=== PATIENT | male | born 1960 | race Caucasian/White ===

== ENCOUNTER 2019-10-25 19:55 | Emergency (ER) | payer SELFPAY ==
[2019-10-25] VITALS (12 sets, daily range): BP systolic 151–184; BP diastolic 88–116; PULSE 67–83; RESP 13–21; TEMP 36.4; O2SAT 92–95; BMI 33.7
--- NOTE | 2019-10-25 19:59 | ECG_ITS ---
Measurements Intervals [place] Rate: 72 P: 52 FL: 171 QRS: 9 QRSD: 111 T: 7 QT: 409 QTc: 449 SINUS RHYTHM POSSIBLE LEFT ATRIAL ENLARGEMENT [-0.1mV P WAVE IN V1/V2] SEPTAL MYOCARDIAL INFARCTION , OF INDETERMINATE AGE [40+ ms Q WAVE IN V1/V2] No previous ECG available for comparison Electronically Signed On 10-26-2019 10:51:04 ART EDUCATOR by Margarita Baeza M.D. [email or web address]
--- NOTE | 2019-10-25 19:59 | XR_ITS ---
WS: [id number] Portable AP upright chest, 10/25/2019 Clinical Data: cp Comparison: None. Findings: No nodules, masses or effusions are seen. The heart is normal. The pulmonary vascularity is not increased. No pneumonia or pneumothorax is seen. XR/XR chest 1V portable [id number] Impression: Negative chest.
--- NOTE | 2019-10-25 20:03 | ED_ITS ---
Entered by Ne Judd, acting as scribe for Opal Ramsey MD HPI - Chest Pain General: Chief Complaint: Chest Pain Stated Complaint: CHEST PAINS Time Seen by Provider: 10/25/19 20:00 Source: patient, family and EMS Mode of arrival: ambulatory Limitations: no limitations History of Present Illness: HPI narrative: 59 y/o male presents to the ED with chest pain. Pt states this started after dinner. Pt states he ate pizza and glez. He reports dizziness, sweating and epigastric pain. Upon arrival at [facility], pt states he has pain that radiates between his shoulder blades. He had minimal relief from 2 Tums. complaint: chest pain Onset (ago): hour(s) Timing of current episode: episodic Prior episodes: No Onset: after eating Pain location: epigastric Severity: moderate Quality: tightness, aching and heaviness Relieving factors: nothing Associated symptoms: Reports dyspnea; Deny fever(s), nausea or vomiting Review of Systems Const: Denies: fever or chills Eyes: Denies: change in vision ENMT: Denies: mouth pain Card: Reports: chest pain Resp: Reports: shortness of breath GI: Denies: nausea, vomiting or diarrhea Musc: Denies: joint pain Skin/Breast: Denies: rash Neuro: Reports: dizziness; Denies: headache or behavioral changes Psych: Denies: depression Endo: Denies: excessive urination Ender/Lymph: Denies: easy bruising All/Imm: Denies: hives PFSH ED PFSH: Statuses (acute, chronic, etc) shown below reflect problem list status as previously entered and may not be historically accurate Social History Smoking and tobacco status: never smoked Physical Exam Const: COMMON NORMALS: no apparent distress, oriented x3 and healthy appearing HENMT: COMMON NORMALS: normocephalic and external nose normal HEAD & SCALP: normocephalic NOSE: external nose normal Eye: COMMON NORMALS: PERRL PUPIL: Yes PERRL Neck/C-Spine: COMMON NORMALS: full ROM and no lymphadenopathy Chest: COMMONS NORMALS: inspection of chest normal Resp: COMMON NORMALS: normal respiratory effort, no use of accessory muscles and clear to auscultation bilaterally AUSCULTATION: clear to auscultation bilaterally Cardio: COMMON NORMALS: regular rate and regular rhythm RATE: regular rate RHYTHM: regular rhythm GI: COMMON NORMALS: normal to inspection, nondistended, normoactive bowel sounds, soft to palpation, non-tender and no masses PALPATION: Yes soft Back/Pelvis: THORACIC SPINE/UPPER BACK: Yes normal to inspection Extremity: COMMON NORMALS: normal to inspection, full ROM and normal capillary refill Neuro: COMMON NORMALS: oriented x3 Psych: COMMON NORMALS: mental status grossly normal and cooperative Skin: COMMON NORMALS: no rashes or lesions noted GENERAL SKIN EXAM: no bassem hes or lesions noted Course Vital Signs: Vital signs: Vital Signs Temperature 97.6 F 10/25/19 22:13 Pulse Rate 75 10/25/19 22:28 Respiratory Rate 15 10/25/19 22:28 Blood Pressure 170/92 10/25/19 22:28 Pulse Oximetry 92 10/25/19 22:28 MDM - Chest Pain MDM Narrative: Medical decision making narrative: Patient presents here with chest pain is atypical in nature. It is likely indigestion from his history. Patient initial and repeat troponin are negative. Patient's x-ray and EKGs and troponin are all normal. He has had no pain here. We will start him on Prilosec and he is stable for discharge. Patient is to return if worsening. Lab Data: Labs: Lab Results 10/25/19 10/25/19 10/25/19 Range/Units 20:11 20:11 20:11 WBC 7.4 (4.0-10.0) 10^3/ uL RBC 4.39 (4.1-5.3) 10^6/u L Hgb 13.5 (11.7-16.6) g/dL Hct 39.4 L (42.0-52.0) % MCV 89.7 (80-94) fL MCH 30.8 (28.0-34.0) pg MCHC 34.3 (30.0-36.0) g/dL RDW 12.2 (12.1-15.1) % Plt Count 274 (130-400) 10^3/c mm MPV 11.1 H (7.4-10.4) fL Neut % (Auto) 62.2 % Lymph % (Auto) 28.3 % Lawrence % (Auto) 5.9 % Eos % (Auto) 2.6 % Baso % (Auto) 0.7 % Neut # (Auto) 4.6 (1.8-7.7) 10^3/u L Lymph # (Auto) 2.1 (0.8-4.8) 10^3/u L Lawrence # (Auto) 0.4 (0.2-0.9) 10^3/u L Eos # (Auto) 0.2 (0.0-0.8) 10^3/u L Baso # (Auto) 0.1 (0.0-0.1) 10^3/u L Nucleated RBC % (a uto) 0 % Nucleated RBCs # 0.0 /100WBC PT 13.70 H (10.5-13.3) SECO NDS INR 1.02 (0.8-1.2) Sodium 135 L (136-145) mmol/L Potassium 3.6 (3.5-5.1) mmol/L Chloride 93 L (98-107) mmol/L Carbon Dioxide 28 (22-29) mmol/L Anion Gap 17.6 (5-19) BUN 13 (6-20) mg/dL Creatinine 1.1 (0.7-1.2) mg/dL GFR Calculation 69.0 L (90-130) mL/min Glucose 259 H (74-109) mg/dL Calcium 9.7 (8.6-10.0) mg/Dl Total Bilirubin 0.4 (0.15-1.2) mg/dL AST 53 H (0-40) U/L ALT 76 H (0-41) U/L Alkaline Phosphata se 92 (40-130) IU/L Troponin T Baselin e (0-15) ng/mL Troponin T 120 Min [place] (0-15) ng/mL Delta Troponin T (0-10) ABS# Total Protein 7.5 (6.6-8.7) g/dL Albumin 4.6 (3.5-5.2) g/dL Globulin 2.9 (1.3-4.6) g/dL Lipase (13-60) U/L 10/25/19 10/25/19 10/25/19 Range/Units 20:11 20:11 21:45 WBC (4.0-10.0) 10^3/ uL RBC (4.1-5.3) 10^6/u L Hgb (11.7-16.6) g/dL Hct (42.0-52.0) % MCV (80-94) fL MCH (28.0-34.0) pg MCHC (30.0-36.0) g/dL RDW (12.1-15.1) % Plt Count (130-400) 10^3/c mm MPV (7.4-10.4) fL Neut % (Auto) % Lymph % (Auto) % Lawrence % (Auto) % Eos % (Auto) % Baso % (Auto) % Neut # (Auto) (1.8-7.7) 10^3/u L Lymph # (Auto) (0.8-4.8) 10^3/u L Lawrence # (Auto) (0.2-0.9) 10^3/u L Eos # (Auto) (0.0-0.8) 10^3/u L Baso # (Auto) (0.0-0.1) 10^3/u L Nucleated RBC % (a uto) % Nucleated RBCs # /100WBC PT (10.5-13.3) SECO NDS INR (0.8-1.2) Sodium (136-145) mmol/L Potassium (3.5-5.1) mmol/L Chloride (98-107) mmol/L Carbon Dioxide (22-29) mmol/L Anion Gap (5-19) BUN (6-20) mg/dL Creatinine (0.7-1.2) mg/dL GFR Calculation (90-130) mL/min Glucose (74-109) mg/dL Calcium (8.6-10.0) mg/Dl Total Bilirubin (0.15-1.2) mg/dL AST (0-40) U/L ALT (0-41) U/L Alkaline Phosphata se (40-130) IU/L Troponin T Baselin e 9 (0-15) ng/mL Troponin T 120 Min [place] 8.99 (0-15) ng/mL Delta Troponin T -0.01 L (0-10) ABS# Total Protein (6.6-8.7) g/dL Albumin (3.5-5.2) g/dL Globulin (1.3-4.6) g/dL Lipase 42 (13-60) U/L Imaging Data^: CXR: Attestation: I personally reviewed and interpreted this imaging study as follows: My impression: no acute abnormality EKG Data^: EKG 1: Attestation: I personally reviewed and interpreted this EKG as follows: EKG interpretation date: 10/25/19 EKG interpretation time: 20:10 Interpretation: nsr hr [address] or t wave abnormalities qrs 111 qtc 433 EKG 2: Attestation: I personally reviewed and interpreted this EKG as follows: EKG interpretation date: 10/25/19 EKG interpretation time: 20:58 Interpretation: nsr hr [address] or t wave abnormalities qrs 125 qtc 438 Discharge Plan Discharge Patient Disposition: Home, Self-Care Clinical Impression: Chest pain Qualifiers: Chest pain type: other chest pain Qualified Code(s): R07.89 - Other chest pain Condition: Stable Prescriptions: New Prilosec OTC 20 mg tablet,delayed release (DR/EC) 20 mg PO DAILY Qty: 30 RF: 0 No Action bumetanide 2 mg Tablet 2 mg PO DAILY RF: 0 clindamycin HCl 300 mg Capsule 300 mg PO BID RF: 0 Discharge Orders: Discharge Order (Routine); Ordered 10/25/19 Ordered By: Opal Ramsey Discharge Diet: Advance as tolerated Discharge Activity: Resume usual activity Patient Instructions: Chest Pain (ED) Discharge Date/Time: 10/25/19 22:33 Coding Level of Care Code ED Brick Cleaner for Chg Fwd Exam Problem Focused The documentation recorded by the [place] Ashley, accurately reflects the service I personally performed and the decisions made by , Opal Ramsey MD
[2019-10-25 20:23] LABS: Basophils # 0.1 10^3/uL (0.0-0.1); Basophils % 0.7 %; Eosinophils # 0.2 10^3/uL (0.0-0.8); Eosinophils % 2.6 %; Hematocrit 39.4 % (42.0-52.0); Hemoglobin 13.5 g/dL (11.7-16.6); Lymphocytes # 2.1 10^3/uL (0.8-4.8); Lymphocytes % 28.3 %; Mean Corpuscular HGB Conc 34.3 g/dL (30.0-36.0); Mean Corpuscular Hemoglobin 30.8 pg (28.0-34.0); Mean Corpuscular Volume 89.7 fL (80-94); Mean Platelet Volume 11.1 fL (7.4-10.4); Monocytes # 0.4 10^3/uL (0.2-0.9); Monocytes % 5.9 %; Neutrophils # 4.6 10^3/uL (1.8-7.7); Neutrophils % 62.2 %; Nucleated Red Blood Cells % 0 %; Platelet Count 274 10^3/cmm (130-400); Red Blood Count 4.39 10^6/uL (4.1-5.3); Red Cell Distribution Width 12.2 % (12.1-15.1); White Blood Count 7.4 10^3/uL (4.0-10.0)
--- NOTE | 2019-10-25 20:30 | PC.NURSE ---
pt reports after eating pizza for dinner he broke out with cold sweats, dizziness, and nausea. took some tums for indigestion that relieved his discomfort but wishes to be evaluated rt hx of chf and being on fluid pill. states he has not seen a cardio MD but a HAND CANDLE MOLDER dx him with chf and gave him the rx for meds.
[2019-10-25 20:38] LABS: Alanine Aminotransferase 76 U/L (0-41); Albumin Level 4.6 g/dL (3.5-5.2); Alkaline Phosphatase 92 IU/L (40-130); Anion Gap 17.6 (5-19); Aspartate Amino Transferase 53 U/L (0-40); Blood Urea Nitrogen 13 mg/dL (6-20); Calcium 9.7 mg/Dl (8.6-10.0); Carbon Dioxide 28 mmol/L (22-29); Chloride 93 mmol/L (98-107); Globulin 2.9 g/dL (1.3-4.6); Glucose 259 mg/dL (74-109); Lipase 42 U/L (13-60); Potassium 3.6 mmol/L (3.5-5.1); Sodium 135 mmol/L (136-145); Total Bilirubin 0.4 mg/dL (0.15-1.2); Total Protein 7.5 g/dL (6.6-8.7)
[2019-10-25 20:41] LABS: Troponin(5th) Baseline 9 ng/mL (0-15)
[2019-10-25 20:50] LABS: INR 1.02 (0.8-1.2)
--- NOTE | 2019-10-25 21:59 | ECG_ITS ---
Measurements Intervals [place] Rate: 69 P: 46 ID: [id number] QRS: 6 QRSD: 118 T: 32 QT: 411 QTc: 441 SINUS RHYTHM SEPTAL MYOCARDIAL INFARCTION , PROBABLY OLD [40+ ms Q WAVE IN V1/V2] No previous ECG available for comparison Electronically Signed On 10-25-2019 22:28:25 COAL PULVERIZER OPERATOR by Stanley Yang M.D. [email or web address]
[2019-10-25 22:09] LABS: Troponin 5 2HR 8.99 ng/mL (0-15)
[2019-10-25 22:13] LABS: Troponin 5 2HR Delta -0.01 ABS# (0-10)
--- NOTE | 2019-10-25 22:13 | PC.NURSE ---
denies needs at this time. questions answered awaiting further md orders
== END 2019-10-25 22:33 | disposition home or self-care (01) ==
PROVIDERS: Emergency Provider Emergency Medicine
DX: R07.89 Other chest pain (principal)
CPT/HCPCS: 71045; 80053; 83690; 84484; 85025; 85610; 93005; 99282; 99283